=== PATIENT | female | born 1945 ===

== ENCOUNTER 2016-09-02 06:31 | Day surgery (SDC) | payer MEDICARE ==
[2016-08-25 12:30] VITALS: BMI 26.6
[2016-09-02] MEDS ORDERED: Bupivacaine HCl 0.5% PF (10 ml) Inj ONE (07:31)
[2016-09-02] MEDS ORDERED: Midazolam 2 MG/2 ML VIAL ONE (07:33)
[2016-09-02] MEDS ORDERED: Lactated Ringer's 1,000 ML IV ONE ×2 (07:34→08:35)
[2016-09-02] MEDS ORDERED: Propofol 10 mg/ml Inj (20 ML) ONE ×2 (07:34→08:03)
[2016-09-02] MEDS ORDERED: Succinylcholine Chloride 20 mg/ml Syr (5 ml) IV ONE (07:36)
[2016-09-02] MEDS ORDERED: Clindamycin 600mg/50ml D5W 600 MG/50 ML VIAL IVPB ONE (08:27)
[2016-09-02] MEDS ORDERED: Neostigmine Methylsulfate 3mg/3ml Syringe IV ONE (08:56)
[2016-09-02] MEDS ORDERED: HYDROmorphone 0.5 mg/0.5 ml ISec IVP PRN (09:40)
[2016-09-02] MEDS ORDERED: Oxycodone/Acetaminophen 5/325 mg Tab PO PRN ×2 (09:40)
--- NOTE | 2016-09-02 09:43 | PCM.SURG1 ---
Surgeon's Initial Post Op Note - Surgeon's Notes Surgeon: Allyson [facility] Assistant: Freda PGY 3, Meera PGY 2 Type of Anesthesia: General LMA Anesthesia Administered By: tacos Pre-Operative Diagnosis: left retrocalcaneal exostosis Operative Findings: see dictation Post-Operative Diagnosis: Same Operation Performed: Left retrocalc exostectomy with re attachment of achilles Specimen/Specimens Removed: bone soft tissue Estimated Blood Loss: EBL {In ML}: 5 Blood Products Given: N/A Drains Used: No Drains Post-Op Condition: Good Date of Surgery/Procedure: 09/02/16 Time of Surgery/Procedure: 09:43
--- NOTE | 2016-09-02 09:46 | CP.PCM.PN ---
Subjective - Date & Time of Evaluation Date of Evaluation: 09/02/16 Time of Evaluation: 09:43 - Subjective Subjective: 70 y/o female seen an evaluated in the Pre op area for evaluation for left retrcalcaneal exostosis for surgey today. Patient states that she has bene having pain for over 1 year now in the area and that she is going to have the bumb removed on the back of her left heel to take care of the pain. Denies any trauma to the area. States that when in shoes it hurts heralot or after long day work. Denies any other complaint.s Denies any f/c/n/v/sob. Full H/P in chart. Objective - Vital Signs/Intake and Output Vital Signs (last 24 hours): Temp Pulse Resp BP Pulse Ox 97.6 F 72 18 153/769 H 100 09/02/16 06:39 09/02/16 06:39 09/02/16 06:39 09/02/16 06:39 09/02/16 06:39 - Medications Medications: Current Medications Hydromorphone HCl (Dilaudid) 0.5 mg IVP Q5M PRN PRN Reason: Pain, severe (8-10) Stop: 09/02/16 11:40 - Constitutional Appears: Well, Non-toxic, No Acute Distress - Neurological Exam Neurological Exam: Alert, Awake, Oriented x3 - Psychiatric Exam Psychiatric exam: Normal Affect, Normal Mood - Skin Skin Exam: Normal Color, Warm - Additional Findings Additional findings: Vasc: DP/PT 2/4, Temp gradient wnl, Cap fill time < 3 s x 10 Derm: No edema, no erythema, no open lesions no clinical signs of infetion noted Neuro: Grossly intact Ortho: Upon physical exam is it grossly noted there is an enlarged posterior calcaneal exostosis of the the left viviana, upon rom it is alos noted there is a mildly limtied rom at the pateint left ankle join that is just below 90; STJ is severely restricted in motion, MTJ is also midly limited in rom, upon wegith bearing there is limited antalgic gait of the left foot due ot severe pain on posterior calcaneus. Assessment and Plan - Assessment and Plan (Free Text) Assessment: 70 y/o female for left retrocal exostectomy. Plan: Patient evaluated and charts reviewed Clearance in chart Consent discussed in full Complications discussed; understands To be NWB to the LLE For the OR for left calc exotectomy
--- NOTE | 2016-09-02 10:59 | RAD ---
PROCEDURE: Left Ankle Radiographs. HISTORY: s/l left calc surgery COMPARISON: None FINDINGS: BONES: Cast obscures fine bony details. There are metallic screws in the posterior calcaneus. There is no evidence of loosening. Bone alignment is normal. There is diffuse bone demineralization. There is no acute fracture or bone destruction. There is a large plantar calcaneal spur. JOINTS: Normal. Ankle mortise maintained. Talar dome intact SOFT TISSUES: Normal. OTHER FINDINGS: None. IMPRESSION: Status post surgery in the posterior calcaneus with placement of metallic screws. Large plantar calcaneal spur. No acute fracture.
[2016-09-02 12:34] VITALS: BP 140/67; PULSE 74; RESP 20; TEMP 98; O2SAT 99
--- NOTE | 2016-09-08 13:39 | PCM.OP ---
Operative Report - Operative Report Date of Surgery/Procedure: 09/02/16 Time of Surgery/Procedure: 08:00 Surgeon: Allyson Powder Hand: Freda PGY 3, Meera PGY 2 Anesthesia/Sedation: Dr. Webb. General Sedation Pre-Operative Diagnosis: Left foot retro calcaneal exostosis Post-Operative Diagnosis: Same Indication for Surgery: This is a 70 y/o female with the above mentioned diagnosis. AT this time patient has exhausted all other forms of conservative treatment for this condition and wishes to have surgical intervention for the condition listed above. Consenst form was signed and all risks, benefits, and complications were discussed with the patient. Patient understands and signs consent. Prior to patient to the OR NPO status was verified and pre op antibiotics were given. Operative Findings: Patient was brought to the operatin room and placed on the operating room table in the prone posistion. Following induction of general sedation a thigh tourniquet was applied at 350mmHg w/o complication. The left leg and ankle was then prepped and draped and the procedure begaen. Procedure/Operation Description: Procedure #1: Left retro calcaneal exostosis. At this time attention was directed tothe posterior aspect of the patients left ankle where grossly there was noted to be an englarged posterior tubercle of the calcaneus at the insertion of the achilles. Utilizing a skin marker the borders of the achilles insertion onto the calc was identified and utilizing a # 15 blade a roughly 5 cm long linear incision was made directly over the achilles and its insertion in a vertical manner. This incision was then carred deep making sure to retract all vital nuerovascular structres and ligating any bleeders and neccesaary. Once the achilles and its insertion was in full surgical field view a linear vertical incsion was made roughly 4 cm long to divide the achilles in half down to its insertion. The achilles was then reflected medially and laterally off of its insertion into the achilles making sure though to leave the distal most attachments preserved. This allows the exostosis to come into the field of view. Utilizing hand curved osteotomes the retro calcaneal exostosis was then resected and passed from the operative field for pathology w/o complication. Following a power rasp was used to further smooth the posterior calcaneus. Upon noting good resection of the exostosis the wound was flushed w/ copius amounts of sterile saline. The achilles was then reattached with two Arthrex titanium bone anchors w/o complication. The achilles was then reapproxximated with 2-0 vicryl. And the wound closed with 4- 0 vicryl and 4-0 nylon in the normal sterile manner. Estimated Blood Loss: <5 Complications: None Discharge & Condition: Patient tolerated anesthesia and procedure well and was transported to the recovery room w/ VSS and NVSI to the left foot and ankle. This patient is to be NWB and will follow up with Dr. Valadez in office as previously discussed.
== END 2016-09-02 12:49 | disposition home or self-care (01) ==
LOC: C.SDS 06:31
PROVIDERS: ATTEND Podiatrist
DX: M77.32 Calcaneal spur, left foot (principal); M89.9 Disorder of bone, unspecified
CPT/HCPCS: 28120; 73600; 88305; 88311; 97116; 97161; C1713; G8978; G8979; G8980; J2001; J2250; J2405; J2704; J2710; J3010; J7120

== ENCOUNTER 2018-04-06 14:19 | Outpatient (CLI) | payer MEDICARE | END 2018-04-06 14:20 | disposition home or self-care (01) | LOC: C.MAMMO 14:19 | DX: Z12.31 Encounter for screening mammogram for malignant neoplasm of breast (principal); M81.0 Age-related osteoporosis without current pathological fracture ==

== ENCOUNTER 2018-05-11 09:24 | Outpatient (CLI) | payer MEDICARE | END 2018-05-11 09:25 | disposition home or self-care (01) | LOC: C.PAT 09:24 | DX: N85.00 Endometrial hyperplasia, unspecified (principal) ==

== ENCOUNTER 2018-05-15 07:16 | Day surgery (SDC) | payer MEDICARE ==
[2018-05-11 08:55] VITALS: BMI 26.5
[2018-05-15] MEDS ORDERED: Propofol 10 mg/ml Inj (20 ML) ONE (09:10)
[2018-05-15] MEDS ORDERED: Clindamycin 600mg/50ml NS 0 MG/0 ML BAG IVPB ONE (09:14)
[2018-05-15] MEDS ORDERED: Lactated Ringer's 1,000 ML IV ONE (10:07)
[2018-05-15] MEDS ORDERED: Lactated Ringer's 1,000 ML IV SCH (10:15)
--- NOTE | 2018-05-15 10:20 | PCM.SURG1 ---
Surgeon's Initial Post Op Note - Surgeon's Notes Surgeon: Dr. Breaux Building Custodian: None Type of Anesthesia: General LMA Anesthesia Administered By: Dr AARON Pre-Operative Diagnosis: 72 yo with Postmenopausal bleeding, Thickened endometrium Operative Findings: Av uterus , stenotic cervical os Post-Operative Diagnosis: Stenotic Os Operation Performed: Attempted Hysteroscopy , Fractional D and C Specimen/Specimens Removed: EMC, ECC Estimated Blood Loss: EBL {In ML}: 5 Blood Products Given: N/A Drains Used: No Drains Post-Op Condition: Good Date of Surgery/Procedure: 05/15/18 Time of Surgery/Procedure: 10:20
[2018-05-15 11:44] VITALS: BP 124/60; PULSE 64; RESP 18; TEMP 98; O2SAT 100
--- NOTE | 2018-05-16 06:44 | OP ---
PROCEDURE DATE: 05/15/2018 PREOPERATIVE DIAGNOSIS: A 72-year-old female with postmenopausal bleeding and thickened endometrium. POSTOPERATIVE DIAGNOSIS: Stenotic os with postmenopausal bleeding and thickened endometrium. PROCEDURE: Attempted hysteroscopy, fractional dilatation and curettage. SURGEON: Joanna Breaux MD ANESTHESIOLOGIST: Francisco Mckeon MD TYPE OF ANESTHESIA: LMA. FINDINGS: Anteverted uterus approximately 6 weeks' gestation, noted to have a stenotic os. COMPLICATION: None. ESTIMATED BLOOD LOSS: Approximately 5 mL. INTRAVENOUS FLUID: 500 mL. SPECIMEN: EMC, ECC. DESCRIPTION OF PROCEDURE: The patient was informed of the risk factors, benefits, and alternatives of the procedure. Risks factors included infection, bleeding, damage to surrounding organs and tissue, complication from anesthesia and possible . After informed consent was obtained and all questions were answered, she was then taken to the operating room, prepped and draped in a normal sterile fashion, placed in dorsal lithotomy position. A weighted speculum was placed into the vagina. The anterior lip of the cervix was grasped with a single-toothed tenaculum. It was noted that she had a stenotic os. It was dilated. Unfortunately, hysteroscopy was attempted but not successful. Due to the stenotic os, it was then proceeded to do what is known as a fractional D and C which double-zero curetting was utilized in order to do the endometrial curetting and the endocervical curetting as well. Specimen was submitted to the Pathology. Excellent hemostasis. Upon completion, all instruments were removed from the vagina. Instruments and lap counts were correct x2. The patient was then taken to the recovery room in stable condition and instructed to follow up in the office in approximately two weeks. Joanna Breaux MD
== END 2018-05-15 11:56 | disposition home or self-care (01) ==
LOC: C.SDS 07:16
PROVIDERS: ATTEND Obstetrics & Gynecology
DX: N85.8 Other specified noninflammatory disorders of uterus (principal); N95.0 Postmenopausal bleeding; R93.89 Abnormal findings on diagnostic imaging of other specified body structures
CPT/HCPCS: 58558; 88305; J2001; J2704; J3010; J7120